=== PATIENT | male | born 1975 | race Caucasian/White ===

== ENCOUNTER 2019-09-11 10:21 | Emergency (ER) | payer MEDICAID, MEDICARE ==
[~2019-09-11 10:21] MED LIST: ALBU18HF2 INH; ALPR-624 PO; CITA40TA22 PO; CLON-528 PO; DICY10CA59 PO; HYDR-4383 PO; MONT10TA21 PO; MORP-92 PO; NORCO10T PO; OMEP-84 PO; ONDA4TAB6 PO; ONDA8TAB6 PO; ONDA8TAB9 PO; TIZA4CAP PO; TRAM50TA2 PO; TRAZ-91 PO
[2019-09-11 10:29] VITALS: BP 143/101
[2019-09-11] MEDS ORDERED: HYDROcodone/acetaminophen 5mg/325mg tablet PO ONE (12:10)
[2019-09-11] MEDS ORDERED: HYDR-3965 PO ×2 (12:32→12:39)
== END 2019-09-11 12:47 | disposition home or self-care (01) ==
LOC: ER 10:22
DX: S82.832A Other fracture of upper and lower end of left fibula, initial encounter for closed fracture (principal); G43.909 Migraine, unspecified, not intractable, without status migrainosus; I10 Essential (primary) hypertension; F41.9 Anxiety disorder, unspecified; F32.9 Major depressive disorder, single episode, unspecified; F12.90 Cannabis use, unspecified, uncomplicated; Z87.442 Personal history of urinary calculi; Z90.49 Acquired absence of other specified parts of digestive tract; Z98.890 Other specified postprocedural states; Z87.11 Personal history of peptic ulcer disease; Z56.0 Unemployment, unspecified; Z79.899 Other long term (current) drug therapy; W17.89XA Other fall from one level to another, initial encounter; Y93.89 Activity, other specified; Y92.89 Other specified places as the place of occurrence of the external cause; Y99.8 Other external cause status
CPT/HCPCS: 29515; 73610; 99283

== ENCOUNTER 2020-05-29 12:36 | Emergency (ER) | payer MEDICARE, MEDICAID ==
[~2020-05-29] VITALS: Ht 175.3 cm; Wt 120.5 kg
[2020-05-29 12:44] VITALS: BP 155/83
[2020-05-29 13:19] LABS: BASOPHILS % (AUTO) 0.4 % (0-1); EOSINOPHILS % (AUTO) 0.1 % (0-6); HEMOGLOBIN 14.7 g/dl (14.0-17.9); LYMPHOCYTES # (AUTO) 1.6 X10'3 (1.1-4.8); LYMPHOCYTES % (AUTO) 13.6 % (21-51); MEAN CORPUSCULAR HEMOGLOBIN 29.9 PG (27.0-31.0); MEAN CORPUSCULAR HGB CONC 34.3 g/dL (33.0-36.5); MEAN CORPUSCULAR VOLUME 87.4 FL (78-98); MEAN PLATELET VOLUME 8.2 FL (7.4-10.4); MONOCYTES # (AUTO) 0.6 X10'3 (0-0.9); MONOCYTES % (AUTO) 4.8 % (2-12); NEUTROPHILS # (AUTO) 9.5 X10'3 (1.8-7.7); NEUTROPHILS % (AUTO) 81.1 % (42-75); PLATELET COUNT 339 X10'3 (140-440); RED BLOOD COUNT 4.92 X10'6 (4.70-6.10); WHITE BLOOD COUNT 11.7 X10'3 (4.5-11.0)
[2020-05-29 13:39] LABS: ALANINE AMINOTRANSFERASE 36 U/L (12-78); ALBUMIN/GLOBULIN RATIO 1.1 (1.1-1.5); ALKALINE PHOSPHATASE 49 IU/L (46-116); ANION GAP 8 (8-16); ASPARTATE AMINO TRANSFERASE 24 U/L (10-37); BILIRUBIN,TOTAL 0.6 MG/DL (0.1-1.0); BLOOD UREA NITROGEN 9 MG/DL (7-18); BUN/CREATININE RATIO 7.5 (5.4-32.0); CALCIUM 9.2 MG/DL (8.5-10.1); CHLORIDE 102 MMOL/L (99-107); GLUCOSE 125 MG/DL (70-104); LIPASE 71 U/L (73-393); POTASSIUM 3.7 MMOL/L (3.5-5.1); SODIUM 136 MMOL/L (135-145); TOTAL CARBON DIOXIDE 26.4 MMOL/L (24-32); TOTAL PROTEIN 7.6 G/DL (6.4-8.2); eGFR 65 ML/MIN
[2020-05-29] MEDS ORDERED: LIDOcaine Viscous 15ml cup MM ONE (15:00)
[2020-05-29] MEDS ORDERED: ketorolac trometh inj. 60 MG/2 ML VIAL IM ONE (15:00)
[2020-05-29] MEDS ORDERED: mag hydrox/Alum hydrox/simeth 30ml oral suspension PO ONE (15:00)
[2020-05-29] MEDS ORDERED: metoclopramide 10mg/10 ml UD oral solution PO ONE (15:00)
[2020-05-29] MEDS ORDERED: dicyclomine 10mg/ml 2ml ampule IM ONE (15:05)
[2020-05-29] MEDS ORDERED: bisacodyl 5mg tablet.DR PO ONE (15:05)
[2020-05-29 16:16] LABS: CLARITY,URINE SLIGHTLY CLOUDY (Clear); COLOR,URINE YELLOW (Yellow); GLUCOSE, URINE NEGATIVE (Neg); KETONES,URINE TRACE mg/dl (Neg); LEUKOCYTE ESTERASE ,URINE NEGATIVE (Neg); NITRITES, URINE NEGATIVE (Neg); OCCULT BLOOD,URINE TRACE-LYSED (Neg); PH,URINE 6.5 (4.8-8.0); PROTEIN,URINE NEGATIVE (Neg)
[2020-05-29 16:17] LABS: UA COLLECTION TYPE CLN CATCH MIDSTREAM
[2020-05-29 16:27] LABS: MUCUS STRANDS MANY /LPF (Neg); SQUAMOUS EPITHELIAL CELL,UR MODERATE /LPF (FEW)
[2020-05-29 16:28] LABS: HYALINE CASTS 0-3 /LPF (NEGATIVE)
[2020-05-29 16:29] LABS: BACTERIA,URINE 1+ /HPF (Neg); RBC,URINE 0-2 /HPF (0-2); WBC,URINE 0-4 /HPF (0-4)
[2020-05-29] MEDS ORDERED: proCHLORperazine 10 MG/2 ml inj IM ONE (17:05)
[2020-05-29] MEDS ORDERED: morphine 4 MG/ML inj SYRINge IM ONE (17:05)
[2020-05-29] MEDS ORDERED: DICY10CA88 PO (17:23)
[2020-05-29] MEDS ORDERED: HYDR-3965 PO (17:23)
[2020-05-29] MEDS ORDERED: POLY17PO10 PO (17:23)
[2020-05-29] MEDS ORDERED: PANT-47 PO (17:23)
[2020-05-29] MEDS ORDERED: BISA-78 PO (17:23)
[2020-05-29] MEDS ORDERED: METO-292 PO (17:23)
== END 2020-05-29 17:44 | disposition home or self-care (01) ==
LOC: ER 12:36
DX: R10.9 Unspecified abdominal pain (principal); R11.2 Nausea with vomiting, unspecified; G43.909 Migraine, unspecified, not intractable, without status migrainosus; I10 Essential (primary) hypertension; F41.9 Anxiety disorder, unspecified; F32.9 Major depressive disorder, single episode, unspecified; F12.90 Cannabis use, unspecified, uncomplicated; Z87.11 Personal history of peptic ulcer disease; Z87.442 Personal history of urinary calculi; Z90.89 Acquired absence of other organs; Z90.49 Acquired absence of other specified parts of digestive tract; Z98.890 Other specified postprocedural states; Z72.89 Other problems related to lifestyle; Z60.2 Problems related to living alone; Z56.0 Unemployment, unspecified; Z79.899 Other long term (current) drug therapy
CPT/HCPCS: 36415; 80053; 81001; 83690; 85025; 96372; 99284; J0500; J0780; J1885; J2270; J8597